=== PATIENT | male | born 1965 | race Caucasian/White ===

== ENCOUNTER 2023-07-13 12:50 | Outpatient (CLI) | payer OTHER, SELFPAY | END 2023-07-13 12:51 | disposition home or self-care (01) | PROVIDERS: PCP Physician Assistant Medical; Visit Provider Physician Assistant Medical | DX: R00.2 Palpitations (principal) | CPT/HCPCS: 80053; 84443 ==

== ENCOUNTER 2023-07-31 09:04 | Outpatient (CLI) | payer OTHER, SELFPAY | END 2023-07-31 09:05 | disposition home or self-care (01) | LOC: NFLDREF 08-01 11:47 | PROVIDERS: PCP Physician Assistant Medical; Referring Provider Physician Assistant Medical; Visit Provider Internal Medicine Cardiovascular Disease | DX: I49.3 Ventricular premature depolarization (principal); G47.00 Insomnia, unspecified; E11.9 Type 2 diabetes mellitus without complications | CPT/HCPCS: 80061; 80076; 82550; 83695; 84443 ==

== ENCOUNTER 2024-08-06 09:08 | Outpatient (CLI) | payer OTHER, SELFPAY | END 2024-08-06 09:09 | disposition home or self-care (01) | LOC: NFLDREF 08-08 10:56 | PROVIDERS: PCP Physician Assistant Medical; Referring Provider Physician Assistant Medical; Visit Provider Physician Assistant Medical | DX: Z00.00 Encounter for general adult medical examination without abnormal findings (principal); R53.82 Chronic fatigue, unspecified; E11.9 Type 2 diabetes mellitus without complications; E66.9 Obesity, unspecified; Z13.9 Encounter for screening, unspecified; F41.9 Anxiety disorder, unspecified | CPT/HCPCS: 80053; 80061; 84443; G0103 ==